=== PATIENT | male | born 1970 | race Caucasian/White ===

== ENCOUNTER 2017-03-20 04:59 | Day surgery (SDC) | payer OTHER ==
[2017-03-18 09:11] LABS: HEMATOCRIT 47.3 % (40.0-51.0); HEMOGLOBIN 16.7 g/dL (13.6-17.8)
[2017-03-18 09:33] LABS: BUN (BLOOD UREA NITROGEN) 13 MG/DL (6-23); CALCIUM, SERUM 9.7 MG/DL (8.5-10.4); CHLORIDE, SERUM 99 MMOL/L (96-112); CO2 (CARBON DIOXIDE) 29 MMOL/L (24-34); CREATININE 1.28 MG/DL (0.70-1.30); GFR AFRICAN AMERICAN 77 ML/MIN (>=60); GFR NON AFRICAN AMERICAN 67 ML/MIN (>=60); GLUCOSE, SERUM 376 MG/DL (60-99); SODIUM, SERUM 135 MMOL/L (135-148)
[~2017-03-20] VITALS: Ht 175.3 cm; Wt 117.5 kg
--- NOTE | ~2017-03-20 | OP ---
Record Of [facility] [place]. [address] NAME: AYDIN MOHR : 70 STATUS : [facility]#: [id number] AGE: 46 ADM/REG DATE : 03/20/17 MR#: [id number] REPORT SERV DATE: 03/23/17 DICTATED BY: ALEAH RADFORD II DATE: 03/23/17 REPORT STATUS : Draft TRANSCRIBED BY: MODL DATE: 03/23/17 DATE OF PROCEDURE: 03/20/2017 PREOPERATIVE DIAGNOSES: 1. Failed spinal column stimulator system. 2. History of lumbar fusion. POSTOPERATIVE DIAGNOSES: 1. Failed spinal column stimulator system. 2. History of lumbar fusion. PROCEDURE: 1. Removal of spinal column stimulator battery. 2. Removal of spinal column stimulator leads x2. FLUIDS: 1200 mL LR. ESTIMATED BLOOD LOSS: 5 mL. DRAINS: None. COMPLICATIONS: None. ANTIBIOTIC: Preoperatively. DETAILS OF PROCEDURE: The patient was brought to the operating room at his request and general anesthesia was achieved. He was placed in the prone position. The back was prepped and draped in a sterile fashion. The incision was then made followed by removal of the battery. The battery was then removed. No suspicious material or fluid was noted. At this point, the percutaneous leads (two) were now removed without difficulty. The entirety of both leads were confirmed. At this point, with the leads and battery now remove the incisions were now irrigated, followed by standard closure, and dressing application, and the patient was then extubated, and transferred to PACU in stable condition. PRADEEP/BRENNA Aleah Radford II, M.D. / [id number] CC: Aleah Radford II, M.D. Record Of [facility] [place]. [address] NAME: AYDIN MOHR : 70 STATUS : [facility] PAT#: [id number] AGE: 46 ADM/REG DATE : 03/20/17 MR#: [id number] REPORT SERV DATE: 03/23/17 DICTATED BY: ALEAH RADFORD II DATE: 03/23/17 REPORT STATUS : Draft TRANSCRIBED BY: BRENNA DATE: 03/23/17 NIKOS CROWLEY
[~2017-03-20 04:59] MED LIST: AMARYL4 PO; CELEXA40 MG PO; DIL2TAB PO; ENDOCET1 TA3 PO; GLUCOPHAGE1000 MG PO; JANUMET1 TA1 PO; LEVEMFLXPN SC; LEVOTHROID137 MCG PO; LEVOTHYROXIN100 MCG PO; MOOD STABILIZER PO; MSCONTIN PO; NORCO1 TA1 PO; NOVOLIN INSULIN SC; NOVOLOG SC; PCET PO; PRAVACHOL40 MG PO; PRIN20 PO; TRULICITY0.75 MG/0. SQ; V2 PO; V5 PO
== END 2017-03-20 12:30 | disposition home or self-care (01) ==
LOC: SDC 04:59
PROVIDERS: Orthopaedic Surgery
PROC: 0JPT0MZ Removal of Stimulator Generator from Trunk Subcutaneous Tissue and Fascia, Open Approach (ICD-10-PCS; 2017-03-20)
PROC: 00PU3MZ Removal of Neurostimulator Lead from Spinal Canal, Percutaneous Approach (ICD-10-PCS; principal; 2017-03-20 07:00)
DX: T85.192A Other mechanical complication of implanted electronic neurostimulator of spinal cord electrode (lead), initial encounter (principal); E11.9 Type 2 diabetes mellitus without complications; I10 Essential (primary) hypertension; E03.9 Hypothyroidism, unspecified; F41.9 Anxiety disorder, unspecified; Z98.1 Arthrodesis status; Z79.84 Long term (current) use of oral hypoglycemic drugs; Z79.899 Other long term (current) drug therapy
CPT/HCPCS: 80048; 82962; 85014; 85018; 88300; 93005; A9270-GY; J0690; J2250; J2370; J2405; J2710; J3010; J3370